=== PATIENT | male | born 1995 | race Caucasian/White ===

== ENCOUNTER → 2017-02-25 | Outpatient (CLI) | payer OTHER | LOC: FIMAGING 12:06 | PROVIDERS: ATTEND Registered Nurse | DX: M79.89 Other specified soft tissue disorders (principal) ==

== ENCOUNTER 2017-10-27 18:59 | Emergency (ER) | payer OTHER ==
[2017-10-27 19:27] VITALS: O2SAT 94
[2017-10-27] MEDS ORDERED: ONDANSETRON 4 MG/2 ML VIAL ONE (19:47)
[2017-10-27] MEDS ORDERED: NS 1,000 ML IV ONE ×2 (19:51)
[2017-10-27] MEDS ORDERED: ONDANSETRON 4 MG/2 ML VIAL IVP ONE ×2 (19:51)
[2017-10-27] MEDS ORDERED: KETOROLAC 30 MG/1 ML SDV IVP ONE (19:51)
--- NOTE | 2017-10-27 19:51 | EDPHY ---
H & P Time Seen by Provider: 10/27/17 19:24 HPI/ROS: 22-year-old male presents complaining right-sided periorbital headache associated with blurred vision and vomiting that began at 1:00 p.m. This afternoon. He denies prior history of migraines or similar headaches. He states he does get occasional headaches. Denies recent illness no fevers no chills no body aches no flu-like symptoms. He also denies neck pain. He denies weakness, numbness or tingling in extremities. Review of systems As per HPI General no fever no chills no weakness HEENT no eye pain no eye discharge. No eye redness, no sore throat Respiratory no cough, no shortness of breath Cardiac no chest pain, no peripheral edema GI no abdominal pain, no diarrhea, no constipation, no nausea, no vomiting positive vomiting no flank pain, no hematuria, no dysuria Musculoskeletal no myalgias, no joint pain Heme no easy bruising, no easy bleeding Endo no polyuria, no polydipsia Skin no rashes, no pruritus Neuro no syncope, no dizziness, positive headaches Psych is no suicidal ideation, no homicidal ideation Past Medical/Surgical History: No significant past medical history Social History: Denies alcohol, tobacco or drug use Smoking Status: Never smoked Physical Exam: 22-year-old male alert and oriented seated in a dark room, complaining of photophobia Able to converse easily, as well as laugh, in no acute distress HEENT atraumatic normocephalic, extraocular muscles intact, anicteric pupil is not sluggish and not firm Oropharynx negative for erythema negative exudate, tolerating her own secretions Neck supple no meningismus, no neck tenderness Lungs clear to auscultation bilaterally Heart regular rate and rhythm without murmur rub or gallop Abdomen nondistended normoactive bowel sounds soft nontender Back no CVA tenderness, no step-offs, no spinal tenderness Extremities no cyanosis clubbing or edema Neuro alert and oriented, no focal deficits, gait intact Skin No rash, specifically no vesicular lesions Constitutional: Initial Vital Signs Temperature (C) 36.4 C 10/27/17 19:24 Heart Rate 58 L 10/27/17 19:24 Blood Pressure 118/90 H 10/27/17 19:24 O2 Sat (%) 94 10/27/17 19:24 O2 Delivery Mode Room Air Allergies/Adverse Reactions: No Known Allergies Allergy (Verified 10/27/17 19:27) Medical Decision Making - Diagnostics Imaging Results: Imaging Impressions Head CT 10/27/17 19:54 Impression: No acute abnormalities. Dr. Westfall discussed these findings by telephone with Isabel Merchant MD on 10/27/2017 at 2034 hours. ED Course/Re-evaluation: Patient seen and evaluated for right periorbital headache with vomiting. IV established Patient given 1 L normal saline for hydration Patient given ondansetron 4 mg IV push for nausea/vomiting Additionally he was given Decadron 4 mg IV and Toradol 30 mg IV for headache. Patient had remarkable relief after fluids and medication. Visual acuity checked when patient was feeling improved 20/25 bilaterally No further visual symptoms CT brain negative Labs CBC normal, specifically no elevation of white blood cell count ESR normal CMP normal Labs with no sign of infection, inflammation or acidosis. Impression Migraine Plan Discharge home Follow-up with primary care physician this week If vision symptoms return follow-up with Ophthalmology Return to emergency department as needed Differential Diagnosis: Differential diagnosis considered but not limited to: Migraine headache, cluster headache, tension headache, intracranial bleeding, intracranial mass, meningitis, glaucoma - Data Points Laboratory Results: Laboratory Results 10/27/17 19:33 10/27/17 19:33 10/27/17 10/27/17 19:33 19:33 WBC 9.97 10^3/uL H 10^3/uL (3.80-9.50) RBC 5.05 10^6/uL 10^6/uL (4.40-6.38) Hgb 15.5 g/dL g/dL (13.7-17.5) Hct 44.4 % % (40.0-51.0) MCV 87.9 fL fL (81.5-99.8) MCH 30.7 pg pg (27.9-34.1) MCHC 34.9 g/dL g/dL (32.4-36.7) RDW 12.4 % % (11.5-15.2) Plt Count 200 10^3/uL 10^3/uL (150-400) MPV 12.0 fL H fL (8.7-11.7) Neut % (Auto) 85.0 % H % (39.3-74.2) Lymph % (Auto) 10.5 % L % (15.0-45.0) [place] % (Auto) 3.6 % L % (4.5-13.0) Eos % (Auto) 0.1 % L % (0.6-7.6) Baso % (Auto) 0.5 % % (0.3-1.7) Nucleat RBC Rel Count 0.0 % % (0.0-0.2) Absolute Neuts (auto) 8.47 10^3/uL H 10^3/uL (1.70-6.50) Absolute Lymphs (auto) 1.05 10^3/uL 10^3/uL (1.00-3.00) Absolute Monos (auto) 0.36 10^3/uL 10^3/uL (0.30-0.80) Absolute Eos (auto) 0.01 10^3/uL L 10^3/uL (0.03-0.40) Absolute Basos (auto) 0.05 10^3/uL 10^3/uL (0.02-0.10) Absolute Nucleated RBC 0.00 10^3/uL 10^3/uL (0-0.01) Immature Gran % 0.3 % % (0.0-1.1) Immature Gran # 0.03 10^3/uL 10^3/uL (0.00-0.10) ESR 8 MM/HR MM/HR (0-15) Sodium 141 mEq/L mEq/L (135-145) Potassium 4.0 mEq/L mEq/L (3.5-5.2) Chloride 106 mEq/L mEq/L (97-110) Carbon Dioxide 24 mEq/l mEq/l (22-31) Anion Gap 11 mEq/L mEq/L (8-16) BUN 17 mg/dL mg/dL (7-23) Creatinine 0.7 mg/dL mg/dL (0.7-1.3) Estimated GFR > 60 Glucose 111 mg/dL H mg/dL (70-100) Calcium 9.8 mg/dL mg/dL (8.5-10.4) Total Bilirubin 1.1 mg/dL mg/dL (0.1-1.4) AST 30 IU/L IU/L (17-59) ALT 63 IU/L IU/L (21-72) Alkaline Phosphatase 55 IU/L IU/L (38-126) Total Protein 7.8 g/dL g/dL (6.3-8.2) Albumin 4.3 g/dL g/dL (3.5-5.0) Lipase 42 IU/L IU/L (23-300) Medications Given: Discontinued Medications Dexamethasone (Decadron Injection) 4 mg IVP EDNOW ONE Stop: 10/27/17 19:53 Last Admin: 10/27/17 19:56 Dose: 4 mg Sodium Chloride (Ns) 1,000 mls @ 0 mls/hr IV EDNOW ONE; Wide Open PRN Reason: Protocol Stop: 10/27/17 19:52 Last Admin: 10/27/17 19:53 Dose: 1,000 mls Sodium Chloride (Ns) 1,000 mls @ 0 mls/hr IV ONCE ONE PRN Reason: Wide Open Stop: 10/27/17 19:52 Last Admin: 10/27/17 20:02 Dose: Not Given Ketorolac Tromethamine (Toradol) 30 mg IVP EDNOW ONE Stop: 10/27/17 19:52 Last Admin: 10/27/17 19:56 Dose: 30 mg Ondansetron HCl (Zofran) 4 mg IVP EDNOW ONE Stop: 10/27/17 19:52 Last Admin: 10/27/17 19:53 Dose: 4 mg Ondansetron HCl (Zofran) 4 mg IVP EDNOW ONE Stop: 10/27/17 19:52 Last Admin: 10/27/17 20:01 Dose: Not Given Ondansetron HCl (Zofran Odt 4 Mg Prepack#2) 1 btl TAKEHOME EDNOW ONE Stop: 10/27/17 21:27 Last Admin: 10/27/17 21:32 Dose: 1 btl Departure - Departure Disposition: Home, Routine, Self-Care Clinical Impression: Headache above the eye region Condition: Good Instructions: Ondansetron (By mouth), Migraine Headache (ED), Acute Headache ( ED) Additional Instructions: Follow up with your primary doctor this week. follow up with Opthalmology if your blurry vision returns. Referrals: Raoul Dunlap, DO [Primary Care Provider] - As per Instructions Jovany Nuñez MD [Medical Doctor] - As per Instructions
[2017-10-27] MEDS ORDERED: DEXAMETHASONE 4 MG/ML VIAL IVP ONE (19:52)
[2017-10-27 19:56] LABS: PLATELET COUNT 200 10^3/uL (150-400)
[2017-10-27] MEDS ORDERED: ONDANSETRON 4MG PREPACK#2 BTL TAKEHOME ONE (21:26)
[2017-10-27 21:54] VITALS: BP 121/61; PULSE 62; RESP 16; TEMP 97.7
== END 2017-10-27 21:45 | disposition home or self-care (01) ==
LOC: CED 18:59
DX: R51 Headache (principal); E86.9 Volume depletion, unspecified
CPT/HCPCS: 70450-PO; 80053-PO; 83690-PO; 85025-PO; 85652-PO; 96374; J1100; J1885; J2405